=== PATIENT | male | born 1930 | race Caucasian/White ===

== ENCOUNTER → 2017-10-19 | Emergency (ER) | payer OTHER ==
[~2017-10-19] VITALS: Ht 165.1 cm; Wt 72.6 kg
[~2017-10-19] MED LIST: ASPIR 8181 MG; ATORVASTATIN CA20 MG; COZAAR50 MG; ISORDIL10 MG; LASIX20 MG; SYNTHROID100 MCG; TOPROL XL50 MG
== END | disposition home or self-care (01) ==
LOC: ER 14:19
DX: S61.022A Laceration with foreign body of left thumb without damage to nail, initial encounter (principal); W45.8XXA Other foreign body or object entering through skin, initial encounter; Y93.89 Activity, other specified; Y92.018 Other place in single-family (private) house as the place of occurrence of the external cause; Y99.8 Other external cause status

== ENCOUNTER → 2017-10-27 | Emergency (ER) | payer OTHER ==
[~2017-10-27] VITALS: Ht 167.6 cm; Wt 72.6 kg
== END | disposition home or self-care (01) ==
LOC: ER 10:18
DX: Z48.02 Encounter for removal of sutures (principal)